=== PATIENT | male | born 1940 | race Caucasian/White ===

== ENCOUNTER → 2020-09-23 14:38 | Outpatient (CLI) | payer MEDICARE, SELFPAY ==
[2020-09-23 12:06] VITALS: BMI 26.4
--- NOTE | 2020-09-23 15:00 | RAD_ITS ---
STUDY: X-RAY - LUMBAR SPINE REASON FOR EXAM: Male, 79 years old. BACK PAIN TECHNIQUE: 3 view(s) of the lumbar spine were obtained. COMPARISON: None FINDINGS: Normal lumbar lordosis. There is no substantial scoliosis. There is a normal alignment of the vertebrae. There is multilevel endplate spondylosis of the lumbar vertebrae. There is multi-level degenerative disc disease with multi-level disc space narrowing. The soft tissue structures are unremarkable. RAD/Lumbar Spine 2 or 3 Views IMPRESSION: Degenerative changes of the spine, as detailed above. Electronically Signed: Garett Sanders MD at 15:24 EDT Tel , Service support ,
== END ==
PROVIDERS: PCP Family Medicine; Referring Provider Anesthesiology Pain Medicine; Visit Provider Anesthesiology Pain Medicine
DX: M54.9 Dorsalgia, unspecified (principal); Z45.2 Encounter for adjustment and management of vascular access device; C61 Malignant neoplasm of prostate
CPT/HCPCS: 36415; 72100; 80053; 82607; 82728; 82746; 83540; 83550; 84153; 84466; 85025